=== PATIENT | female | born 1970 ===

== ENCOUNTER 2017-08-22 12:51 | Emergency (ER) | payer MEDICARE ==
[~2017-08-22] VITALS: Ht 157.5 cm; Wt 85.0 kg
[2017-08-22 12:53] VITALS: BP 117/80; PULSE 104; RESP 15; TEMP 98.2; O2SAT 100
--- NOTE | 2017-08-22 14:22 | PD ---
HPI Chief Complaint: Cold / Flu Symptoms Time Seen by Provider: 14:10 Travel History International Travel<30 days: No Contact w/Intl Traveler<30days: No Traveled to known affect area: No History of Present Illness HPI 46-year-old female presents to the emergency department with complaint of cough 1 month with onset of nasal congestion, sinus congestion, and clogged ears 5 days. Denies chest pain, chest tightness, shortness of breath, wheezing. Denies history of respiratory disease such as COPD, asthma, emphysema. Denies hemoptysis. Denies fevers, vomiting. Has tried taking Mucinex, Robitussin, TheraFlu without relief of symptoms. Cough is worse at night. Symptoms are mild to moderate in severity. No known aggravating or relieving factors. Primary care provider is in [place]. Allergies to pneumococcal vaccination. History of diabetes type 2 and is insulin-dependent and hypercholesterolemia. Says her blood sugars are well controlled. Has no other medical complaints. No other modifying factors or associated signs and symptoms. PFSH Social History Tobacco Use: No Allergies-Medications (Allergen,Severity, Reaction): Coded Allergies: pneumococcal vaccine (Verified Allergy, Unknown, 08/22/17) Reported Meds & Prescriptions Reported Meds & Active Scripts Active Deltasone (Prednisone) 20 Mg Tab 40 Mg PO DAILY 4 Days start 08/23/2017 Tessalon Perles (Benzonatate) 100 Mg Cap 100 Mg PO TID PRN 3 Days Ventolin Hfa 18 GM Inh (Albuterol Sulfate) 90 Mcg/Act Aer 2 Puff INH Q4-6H PRN Azithromycin 500 Mg Tab 500 Mg PO DAILY Reported Trulicity Inj (Dulaglutide Inj) 1.5 Mg/0.5 Ml Pen 1.5 Mg SQ Q7D Metformin (Metformin HCl) 1,000 Mg Tab 1,000 Mg PO BIDPC Review of Systems Except as stated in HPI: all other systems reviewed are Neg Physical Exam Narrative GENERAL: Well-nourished, well-developed female patient, in no acute distress; afebrile, nontoxic-appearing SKIN: Warm and dry. HEAD: Atraumatic. Normocephalic. EYES: Pupils equal and round. No scleral icterus. No injection or drainage. ENT: Mucosa pink and moist. No erythema or exudates. No uvular edema. No uvular , palatal, or tonsillar deviation. Airway patent. Nares without nasal blood, purulent drainage or septal hematoma. EARS: Bilateral pinnae and external canals appear within normal limits. Bilateral tympanic membranes without erythema, dullness or perforation. NECK: Trachea midline. No lymphadenopathy. CARDIOVASCULAR: Regular rate and rhythm. No murmur appreciated. RESPIRATORY: No accessory muscle use. Lungs with mild wheezing throughout to auscultation. Breath sounds equal bilaterally. No retractions or tachypnea. No Audible wheezing noted. GASTROINTESTINAL: Rounded. MUSCULOSKELETAL: No obvious deformities. No clubbing. No cyanosis. No edema. NEUROLOGICAL: Awake and alert. Oriented 3. No obvious cranial nerve deficits. Motor grossly within normal limits. Normal speech. Moves all extremities. 5/5 strength to all extremities. PSYCHIATRIC: Appropriate mood and affect; insight and judgment normal. Data Data Last Documented VS Vital Signs Date Time Temp Pulse Resp B/P (MAP) Pulse Ox O2 Delivery O2 Flow Rate FiO2 08/22/17 12:53 98.2 104 15 117/80 (92) 100 Orders Orders Chest, Pa & Lat (08/22/17 14:11) Prednisone (Deltasone) (08/22/17 14:30) Albuterol-Ipratropium Neb (Duoneb Neb) (08/22/17 14:30) Ed Discharge Order (08/22/17 15:35) [facility] Medical Decision Making Medical Screen Exam Complete: Yes Emergency Medical Condition: Yes Medical Record Reviewed: Yes Differential Diagnosis Bronchitis, pneumonia, upper respiratory infection, sinusitis Narrative Course 46-year-old female physical exam and HPI consistent with bronchitis. She has had cough for 1 month with onset of upper respiratory symptoms 5 days. Lungs with mild wheezing throughout on auscultation. Patient is in no acute distress. No retractions or tachypnea. No audible wheezing. Chest x-ray, DuoNeb 1, Deltasone ordered. 1459: Chest x-ray with no acute findings. 1536: Patient reports improvement in symptoms after nebulizer. She says she feels better and is coughing less. Continues to deny chest tightness or shortness of breath. Lungs are clear and equal throughout on auscultation. Ventolin inhaler, Deltasone, and azithromycin, Tessalon Perles prescribed for home. Instructed patient to follow up with primary care provider. Patient verbalizes understanding and agreement with treatment plan. Patient is medically cleared and stable for discharge. Discussed reasons to return to the emergency department. Patient agrees with treatment plan. The patients vital signs are stable and the patient is stable for outpatient follow-up and treatment. Patient discharged home, stable and in no acute distress. Diagnosis Primary Impression: Bronchitis Additional Impression: Upper respiratory infection Qualified Codes: J06.9 - Acute upper respiratory infection, unspecified Referrals: Primary Care Physician Patient Instructions: Acute Bronchitis (ED), Cold Symptoms (ED), General Instructions, Safe Use of Cough and Cold Medicines (ED), Upper Respiratory Infection (ED) Additional Instructions: Use Albuterol inhaler as prescribed Take oral steroids as prescribed and complete full course Use Tessalon Perles as prescribed to decrease coughing spasms [id number] decongestants or antihistamines as directed and as needed for symptom management Your cough can last 4-6 weeks Drink plenty of fluids to prevent dehydration Use hot air humidifier to decrease cough exacerbation Turn off ceiling fans and sleep with head of bed elevated Avoid triggers such as second hand smoke, dust, known allergens Follow-up with your primary care provider Return to the emergency department immediately with worsening of symptoms Med/Other Pt SpecificInfo: Prescription(s) given Scripts Prednisone (Deltasone) 20 Mg Tab 40 MG PO DAILY for 4 Days, #8 TAB 0 Refills start 08/23/2017 Prov: Brigid Cantu 08/22/17 Benzonatate (Tessalon Perles) 100 Mg Cap 100 MG PO TID Y for COUGH for 3 Days, CAP 0 Refills Prov: Brigid Cantu [employer] 08/22/17 Albuterol 18 GM Inh (Ventolin Hfa 18 GM Inh) 90 Mcg/Act Aer 2 PUFF INH Q4-6H Y for SOB/WHEEZING, #1 INHALER 0 Refills Prov: Brigid CantuP 08/22/17 Azithromycin (Azithromycin) 500 Mg Tab 500 MG PO DAILY for Infection, #5 TAB 0 Refills Prov: Brigid Cantu 08/22/17 Disposition: 01 DISCHARGE HOME Condition: Stable Brigid Cantu Aug 22, 2017 14:22
[2017-08-22] MEDS ORDERED: VENTAER INH (14:24)
[2017-08-22] MEDS ORDERED: BENZ100 PO (14:24)
[2017-08-22] MEDS ORDERED: AZIT500T2 PO (14:24)
[2017-08-22] MEDS ORDERED: PRED-503 PO (14:24)
[2017-08-22] MEDS ORDERED: DULA0.5I SQ (14:29)
[2017-08-22] MEDS ORDERED: METF1000 PO (14:29)
[2017-08-22] MEDS ORDERED: RESP: ALBUTEROL 2.5 MG/IPRATROPIUM 0.5 MG NEB (SCH) INH ONE (14:30)
[2017-08-22] MEDS ORDERED: predniSONE 20 MG TAB PO ONE (14:30)
--- NOTE | 2017-08-22 14:46 | RADRPT ---
EXAM DATE/TIME: 08/22/2017 14:35 [facility] COMPARISON: No previous studies available for comparison. INDICATIONS : Productive cough and congestion since Sunday. MEDICAL HISTORY : None. SURGICAL HISTORY : None. ENCOUNTER: Initial ACUITY: 4 - 6 days PAIN SCORE: 0/10 LOCATION: Bilateral chest FINDINGS: PA and lateral views of the chest demonstrate the lungs to be symmetrically aerated without evidence of mass, infiltrate or effusion. The cardiomediastinal contours are unremarkable. Osseous structure s are intact. CONCLUSION: No acute cardiopulmonary disease. René Stone MD on August 22, 2017 at 14:44 Board Certified Radiologist. This report was verified electronically.
== END 2017-08-22 15:42 | disposition home or self-care (01) ==
LOC: NEPK 12:51
DX: J40 Bronchitis, not specified as acute or chronic (principal); J06.9 Acute upper respiratory infection, unspecified; E11.9 Type 2 diabetes mellitus without complications; Z79.4 Long term (current) use of insulin
CPT/HCPCS: 71046; 94664; 99283; J7512